=== PATIENT | male | born 1990 | race American Indian/Alaskan Native ===

== ENCOUNTER 2017-03-20 13:36 | Emergency (ER) | payer MEDICAID ==
[2017-03-20 13:57] VITALS: BP 147/88
[2017-03-20] MEDS ORDERED: Sodium Chloride 0.9% 10 ML Syringe FLUSH PRN (14:02)
[2017-03-20] MEDS ORDERED: Ondansetron 4 MG/2 ML SDV IVPUSH ONE (14:02)
[2017-03-20] MEDS ORDERED: Sodium Chloride 0.9% 1,000 ML IV STA (14:02)
[2017-03-20] MEDS ORDERED: HYDROmorphone 1 MG/ML Syringe IVPUSH ONE ×2 (14:04→17:21)
--- NOTE | 2017-03-20 16:02 | EDM.PDOC ---
ED HPI GENERAL MEDICAL PROBLEM - General Chief Complaint: Abdominal Pain Stated Complaint: ABDOMINAL PAIN/ HEADACHE/ NAUSEA Time Seen by Provider: 03/20/17 13:58 Source of Information: Reports: Patient History Limitations: Reports: No Limitations - History of Present Illness INITIAL COMMENTS - FREE TEXT/NARRATIVE: The patient presents with RUQ abdominal pain, nausea, and vomiting. This has been going on for 9 days. He has no fever, chills, cough, congestion or runny nose. He did not think he ate any bad food and he has no sick contact. He has no diarrhea. He is also jaundice. He noticed this a couple days ago. He has no chest pain or shortness of breath. He still has a gallbladder and appendix. He does not drink. He quit about 1 year ago. He did not drink heavy then but he says he could not hold his liquor so he quit. He has no family history of problems with his liver. Onset: Gradual Duration: Day(s): (9) Location: Reports: Abdomen Quality: Reports: Sharp Severity: Moderate Improves with: Reports: None Worsens with: Reports: None Associated Symptoms: Reports: Nausea/Vomiting. Denies: Chest Pain, Cough, Fever /Chills, Headaches, Shortness of Breath Upper Abdomen Pain Score (Numeric/FACES): 6 - Related Data Allergies Allergy/AdvReac Type Severity Reaction Status Date / Time Sulfa (Sulfonamide Allergy Cannot Verified 03/27/16 16:51 Antibiotics) Remember Home Meds: Home Meds Omeprazole 20 mg PO BID 03/20/17 [History] Ondansetron [Zofran ODT] 8 mg PO Q8H PRN 03/20/17 [History] Past Medical History - Past Health History Medical/Surgical History: Denies Medical/Surgical History Other Respiratory History: MRSA Other Neuro History: Craniotomy Psychiatric History: Reports: Addiction, Anxiety, Depression Social & Family History - Family History Family Medical History: Noncontributory - Tobacco Use Smoking Status *Q: Never Smoker Years of Tobacco use: 6 Packs/Tins Daily: 0.1 Second Hand Smoke Exposure: No - Caffeine Use Caffeine Use: Reports: None - Recreational Drug Use Recreational Drug Use: No ED ROS GENERAL - Review of Systems Review Of Systems: See Below Constitutional: Reports: No Symptoms HEENT: Reports: No Symptoms Respiratory: Reports: No Symptoms Cardiovascular: Reports: No Symptoms Endocrine: Reports: No Symptoms GI/Abdominal: Reports: Abdominal Pain, Nausea, Vomiting. Denies: Diarrhea : Reports: No Symptoms Musculoskeletal: Reports: No Symptoms ED EXAM, GI/ABD - Physical Exam Exam: See Below Exam Limited By: No Limitations General Appearance: Alert, No Apparent Distress Ears: Normal External Exam Nose: Normal Inspection Head: Atraumatic, Normocephalic Neck: Normal Inspection Respiratory/Chest: No Respiratory Distress, Lungs Clear, Normal Breath Sounds Cardiovascular: Regular Rate, Rhythm, No Edema, No Murmur GI/Abdominal Exam: Soft, No Organomegaly, No Mass, Tender (Moderate tenderness to the RUQ) Back Exam: Normal Inspection Extremities: Normal Inspection Comments: Bilateral scleral icterus Course - Vital Signs Last Recorded V/S: Last Vital Signs Temp 97.6 F 03/20/17 13:52 Pulse 75 03/20/17 13:52 Resp 18 03/20/17 13:52 BP 147/88 H 03/20/17 13:52 Pulse Ox 96 03/20/17 13:52 - Orders/Labs/Meds Orders: Active Orders 24 hr Category Date Time Status Peripheral IV Care [RC] . DIRECTED Care 03/20/17 14:03 Active Abdomen Ltd [US] Stat Exams 03/20/17 14:02 Taken Abdomen Pelvis w Cont [CT] Stat Exams 03/20/17 16:30 Taken HEPATITIS PANEL, ACUTE [REF] Stat Lab 03/20/17 14:15 Received ED Antiemetic Medication Reflex [OM.PC] Stat Oth 03/20/17 14:03 Ordered Peripheral IV Insertion Adult [OM.PC] Stat Oth 03/20/17 14:02 Ordered Labs: Laboratory Tests 03/20/17 03/20/17 03/20/17 Range/Units 14:15 14:15 14:15 WBC 7.97 (4.23-9.07) K/mm3 RBC 5.59 (4.63-6.08) M/mm3 Hgb 16.8 (13.7-17.5) gm/L Hct 49.9 (40.1-51.0) % MCV 89.3 (79.0-92.2) fl MCH 30.1 (25.7-32.2) pg MCHC 33.7 (32.2-35.5) g/dl RDW Std Deviation 47.8 H (35.1-43.9) fL Plt Count 265 (163-337) K/mm3 MPV 11.6 (9.4-12.3) fl Neut % (Auto) 53.9 (34.0-67.9) % Lymph % (Auto) 29.4 (21.8-53.1) % [place] % (Auto) 15.6 H (5.3-12.2) % Eos % (Auto) 0.4 L (0.8-7.0) Baso % (Auto) 0.4 (0.1-1.2) % Neut # (Auto) 4.31 (1.78-5.38) K/mm3 Lymph # (Auto) 2.34 (1.32-3.57) K/mm3 [place] # (Auto) 1.24 H (0.30-0.82) K/mm3 Eos # (Auto) 0.03 L (0.04-0.54) K/mm3 Baso # (Auto) 0.03 (0.01-0.08) K/mm3 Manual Slide Review Normal smear Sodium 139 (136-145) mEq/L Potassium 3.7 (3.5-5.1) mEq/L Chloride 102 (98-107) mEq/L Carbon Dioxide 25 (21-32) mEq/L Anion Gap 15.7 H (5-15) BUN 8 (7-18) mg/dL Creatinine 0.8 (0.7-1.3) mg/dL Est Cr Clr Drug Dosing 161.26 mL/min Estimated GFR (MDRD) > 60 (>60) mL/min BUN/Creatinine Ratio 10.0 L (14-18) Glucose 96 (74-106) mg/dL Calcium 9.4 (8.5-10.1) mg/dL Total Bilirubin 8.9 H (0.2-1.0) mg/dL GGT (15-85) U/L AST 2212 H (15-37) U/L ALT 3644 H (16-63) U/L Alkaline Phosphatase 189 H (46-116) U/L Total Protein 8.0 (6.4-8.2) g/dl Albumin 3.9 (3.4-5.0) g/dl Globulin 4.1 gm/dL Albumin/Globulin Ratio 1.0 (1-2) Lipase 360 (73-393) U/L Urine Color (Yellow) Urine Appearance (Clear) Urine pH (5.0-8.0) Ur Specific [place] (1.005-1.030) Urine Protein (Negative) Urine Glucose (UA) (Negative) Urine Ketones (Negative) Urine Occult Blood (Negative) Urine Nitrite (Negative) Urine Bilirubin (Negative) Urine Urobilinogen (0.2-1.0) Ur Leukocyte Esterase (Negative) Urine RBC (0-5) /hpf Urine WBC (0-5) /hpf Ur Epithelial Cells (0-5) /hpf Urine Bacteria (FEW) /hpf Urine Mucus (FEW) /hpf Ethyl Alcohol (0.00) gm% Monoscreen Negative (NEGATIVE) 03/20/17 03/20/17 03/20/17 Range/Units 14:15 14:20 16:31 WBC (4.23-9.07) K/mm3 RBC (4.63-6.08) M/mm3 Hgb (13.7-17.5) gm/L Hct (40.1-51.0) % MCV (79.0-92.2) fl MCH (25.7-32.2) pg MCHC (32.2-35.5) g/dl RDW Std Deviation (35.1-43.9) fL Plt Count (163-337) K/mm3 MPV (9.4-12.3) fl Neut % (Auto) (34.0-67.9) % Lymph % (Auto) (21.8-53.1) % [place] % (Auto) (5.3-12.2) % Eos % (Auto) (0.8-7.0) Baso % (Auto) (0.1-1.2) % Neut # (Auto) (1.78-5.38) K/mm3 Lymph # (Auto) (1.32-3.57) K/mm3 [place] # (Auto) (0.30-0.82) K/mm3 Eos # (Auto) (0.04-0.54) K/mm3 Baso # (Auto) (0.01-0.08) K/mm3 Manual Slide Review Sodium (136-145) mEq/L Potassium (3.5-5.1) mEq/L Chloride (98-107) mEq/L Carbon Dioxide (21-32) mEq/L Anion Gap (5-15) BUN (7-18) mg/dL Creatinine (0.7-1.3) mg/dL Est Cr Clr Drug Dosing mL/min Estimated GFR (MDRD) (>60) mL/min BUN/Creatinine Ratio (14-18) Glucose (74-106) mg/dL Calcium (8.5-10.1) mg/dL Total Bilirubin (0.2-1.0) mg/dL GGT 348 H (15-85) U/L AST (15-37) U/L ALT (16-63) U/L Alkaline Phosphatase (46-116) U/L Total Protein (6.4-8.2) g/dl Albumin (3.4-5.0) g/dl Globulin gm/dL Albumin/Globulin Ratio (1-2) Lipase (73-393) U/L Urine Color Dark yellow (Yellow) Urine Appearance Slt cloudy H (Clear) Urine pH 5.5 (5.0-8.0) Ur Specific [place] > or = 1.030 (1.005-1.030) Urine Protein 1+ H (Negative) Urine Glucose (UA) Negative (Negative) Urine Ketones 3+ H (Negative) Urine Occult Blood Negative (Negative) Urine Nitrite Negative (Negative) Urine Bilirubin 3+ H (Negative) Urine Urobilinogen 1.0 (0.2-1.0) Ur Leukocyte Esterase Negative (Negative) Urine RBC 0-5 (0-5) /hpf Urine WBC 0-5 (0-5) /hpf Ur Epithelial Cells Not seen (0-5) /hpf Urine Bacteria Many H (FEW) /hpf Urine Mucus Few (FEW) /hpf Ethyl Alcohol 0.00 (0.00) gm% Monoscreen (NEGATIVE) Meds: Medications Discontinued Medications Generic Name Dose Route Start Last Admin Trade Name Freq PRN Reason Stop Dose Admin Hydromorphone HCl 1 mg 03/20/17 14:04 03/20/17 14:24 Dilaudid IVPUSH 03/20/17 14:05 1 mg ONETIME ONE Administration Hydromorphone HCl 1 mg 03/20/17 17:21 03/20/17 17:43 Dilaudid IVPUSH 03/20/17 17:22 1 mg ONETIME ONE Administration Sodium Chloride 1,000 mls @ 1,000 mls/hr 03/20/17 14:02 03/20/17 14:24 Normal Saline IV 03/20/17 15:01 1,000 mls/hr .BOLUS STA Administration Sodium Chloride 1,000 mls @ 150 mls/hr 03/20/17 16:45 03/20/17 16:44 Normal Saline IV 150 mls/hr ASDIRECTED ARLETH Administration Iopamidol 125 ml 03/20/17 16:58 03/20/17 17:11 Isovue-300 (61%) IVPUSH 03/20/17 16:59 125 ml ONETIME ONE Administration Ondansetron HCl 4 mg 03/20/17 14:02 03/20/17 14:23 Zofran IVPUSH 03/20/17 14:03 4 mg ONETIME ONE Administration Sodium Chloride 10 ml 03/20/17 14:02 03/20/17 14:23 Saline Flush FLUSH 10 ml ASDIRECTED PRN Administration Keep Vein Open Sodium Chloride 10 ml 03/20/17 16:58 03/20/17 17:11 Saline Flush FLUSH 03/20/17 16:59 10 ml ONETIME ONE Administration - Re-Assessments/Exams Free Text/Narrative Re-Assessment/Exam: 03/20/17 16:02 I ordered an IV NS 1L bolus, zofran 4mg IV, dilaudid 1mg IV, labs, UA and an US of his gallbladder. 03/20/17 18:28 His CBC was negative. His anion gap was elevated at 15.7. His total bili is elevated at 8.9. His GGT is elevated at 348. His AST was elevated at 2212. His ALT was elevated at 3644. His alk phos was elevated at 189. His lipase was negative. His UA shows no UTI. His monoscreen was negative. His US shows probable fatty liver, probable thickening of gallbladder wall which is nonspecific. It could reflect hyperplastic cholecystosis, cholecystitis, liver failure/hepatitis, heart failure or other. I called Dr Lozano our surgeon adapted physical education teacher and Dr Bustos the hospitalist adapted physical education teacher and they recommended a CT of his abdomen and pelvis. The CT showed gallbladder abnormalities suspicious for chronic cholecystitis. Measurements taken of the gallbladder wall by ultrasound probably included pericholecystic fat giving the false impression of gallbladder wall thickening. Indeterminate portacaval adneopathy is probably present, which could be reactive. There is moderate fatty liver replacement. I talked with our hospitalist and he did not feel comfortable keeping him. I then called [facility] in [place] and talked with Dr Yañez and she accepted the patient. I did give him more dilaudid for pain. Departure - Departure Time of Disposition: 18:40 Disposition: DC/[facility]fer to [facility] 02 Condition: Fair Clinical Impression: Elevated transaminase level, Jaundice Abdominal pain Qualifiers: Abdominal location: right upper quadrant Qualified Code(s): R10.11 - Right upper quadrant pain Nausea and vomiting Qualifiers: Vomiting type: unspecified Vomiting Intractability: non-intractable Qualified Code(s): R11.2 - Nausea with vomiting, unspecified - Discharge Information Referrals: PCP,Not In Area [Primary Care Provider] - Forms: ED Department Discharge - My Orders Last 24 Hours: My Active Orders 03/20/17 14:02 Abdomen Ltd [US] Stat Peripheral IV Insertion Adult [OM.PC] Stat 03/20/17 14:03 Peripheral IV Care [RC] . DIRECTED ED Antiemetic Medication Reflex [OM.PC] Stat 03/20/17 14:15 HEPATITIS PANEL, ACUTE [REF] Stat 03/20/17 16:30 Abdomen Pelvis w Cont [CT] Stat - Assessment/Plan Last 24 Hours: My Active Orders 03/20/17 14:02 Abdomen Ltd [US] Stat Peripheral IV Insertion Adult [OM.PC] Stat 03/20/17 14:03 Peripheral IV Care [RC] . DIRECTED ED Antiemetic Medication Reflex [OM.PC] Stat 03/20/17 14:15 HEPATITIS PANEL, ACUTE [REF] Stat 03/20/17 16:30 Abdomen Pelvis w Cont [CT] Stat
[2017-03-20] MEDS ORDERED: Sodium Chloride 0.9% 1,000 ML IV SCH (16:45)
[2017-03-20] MEDS ORDERED: Iopamidol 612 MG/ML 150 ML Bottle IVPUSH ONE (16:58)
[2017-03-20] MEDS ORDERED: Sodium Chloride 0.9% 10 ML Syringe FLUSH ONE (16:58)
--- NOTE | 2017-03-21 10:06 | CT ---
CT abdomen and pelvis Technique: Multiple axial sections were obtained from above the dome of the diaphragm inferiorly through the pubic symphysis. Intravenous contrast was utilized. Delayed images were obtained through the bladder. Comparison: Previous abdominal ultrasound of the right upper abdomen dated earlier on the same day. Findings: Visualized lung bases are clear. Liver shows diffuse fatty infiltration. Small lymph node is noted anterior to the upper inferior vena cava believed to be incidental. No other retroperitoneal adenopathy is seen. Adrenal glands show no nodule. Kidneys show symmetric contrast enhancement without hydronephrosis or mass. Gallbladder is contracted. Slight inflammatory-type change is noted around the gallbladder. No gallbladder wall thickening is seen. Pancreas is within normal limits. Aorta shows no aneurysmal dilatation. No mesenteric abnormalities are seen. Appendix is seen which is normal. No pelvic mass or adenopathy is identified. Delayed images show contrast within the distal ureters and within the bladder. No bowel dilatation is identified. Bone window settings were reviewed which appear within normal limits for the patient's age. Impression: 1. Contracted gallbladder with slight surrounding inflammatory change. No gallbladder wall thickening is seen as noted on ultrasound which likely was artifact on previous ultrasound. Difficult to exclude acalculous chronic cholecystitis. 2. Fatty infiltration within the liver. 3. No additional abnormality is appreciated on CT study of the abdomen and pelvis. Diagnostic code #3 I agree with preliminary report issued by [facility] [facility] ([facility] report finalized on 03/20/17, 8:34 PM Central Time)
--- NOTE | 2017-03-21 10:06 | US ---
Limited abdominal ultrasound: Multiple real-time images of the upper right abdomen were obtained. Liver is echogenic. No discrete focal abnormality is appreciated within the liver. Poorly distended gallbladder is seen with gallbladder wall thickening. No definite shadowing gallstones are appreciated. Common bile duct is poorly seen. No indirect evidence of biliary duct dilatation is appreciated. Right kidney shows no hydronephrosis or mass. Right kidney has a length of 10.9 cm. Portal vein shows normal hepatopedal flow. Visualized portions of the pancreas are within normal limits. Impression: 1. Contracted gallbladder with gallbladder wall thickening. 2. Echogenic liver most likely representing fatty infiltration. 3. No additional abnormality is definitely seen. Diagnostic code #3 I agree with preliminary report issued by [facility] ([facility] report finalized on 03/20/17, 4:38 PM Central Time)
== END 2017-03-20 19:15 ==
LOC: JD.ED 13:36
DX: R17 Unspecified jaundice (principal); R74.0 Nonspecific elevation of levels of transaminase and lactic acid dehydrogenase [LDH]; Z88.2 Allergy status to sulfonamides
CPT/HCPCS: 36415; 74177; 74177-26; 76705; 76705-26; 80053; 81001; 82977; 83690; 85025; 86308; 96361; 96374; 96375; 96376; 99285-25; G0480; J1170; J2405; J7040; J7050; Q9967

== ENCOUNTER 2018-06-04 23:09 | Emergency (ER) | payer MEDICAID ==
[2018-06-04 23:17] VITALS: BP 145/94
--- NOTE | 2018-06-05 00:53 | EDM.PDOC ---
ED HPI GENERAL MEDICAL PROBLEM - General Chief Complaint: Chest Pain Stated Complaint: chest pain Time Seen by Provider: 06/04/18 23:34 Source of Information: Reports: Patient, RN Notes Reviewed, Significant Other ( Girlfriend) History Limitations: Reports: No Limitations - History of Present Illness INITIAL COMMENTS - FREE TEXT/NARRATIVE: The patient states that the veins intermittently pop out in his left forearm, and that he feels pressure in his forearm, ever since he injured his left wrist several months ago. He also reports intermittent palpitations ever since childhood. Sometimes the palpitations cause a pinprick sensation to his chest. He states that they occur both at rest and with exertion, and that he has not identified any modifiers. He states that the frequency of these palpitations has been increasing over the past month or so. He reports prior evaluation of his symptoms, including a 48-hour Holter monitor, and an echocardiogram. He states that he was told that the results were normal, but his girlfriend then stated "Yeah, that's what they told us", implying that they had not been told the truth. The patient states that he has a family history of heart disease, and that he is concerned that there is something very wrong with his heart. He also reports increased stress in his life. He reports that his PCP is in [place], but that, for reasons unclear, he was seen by the Stoker Installer Dr. Anne in [place], who felt that his symptoms were due to anxiety, and started him on Cymbalta on . Review of prior medical records finds that the patient underwent a 48-hour Holter monitor on 01/03/2015, which found a total of 26 singly occurring PVCs, and one brief episode of nonsustained ventricular tachycardia containing a 3- beat run at a rate of 170 bpm (strictly speaking, this is not ventricular tachycardia, as ventricular tachycardia requires 6 beats or more). Additionally , the patient also reported various symptoms such as "pounding in the heart, palpitations, heart, quick sharp pain" etc., all of which were associated with a sinus rhythm. Additionally, the patient underwent an echocardiogram on 02/03/2015, which returned essentially normal. Here in the ED tonight, it is noted that the patient's oxygen saturation is 99- 100% on room air, suggesting hyperventilation. The patient's PCP is Jennie Rivas, in [place]. The patient is an appointment to see her this coming 06/09/2018. Chest Pain Score (Numeric/FACES): 0 - Related Data Allergies Allergy/AdvReac Type Severity Reaction Status Date / Time Sulfa (Sulfonamide Allergy Cannot Verified 03/27/16 16:51 Antibiotics) Remember Home Meds: Home Meds Omeprazole 20 mg PO BID 03/20/17 [History] Ondansetron [Zofran ODT] 8 mg PO Q8H PRN 03/20/17 [History] Past Medical History Musculoskeletal History: Reports: Fracture (left hand) Neurological History: Reports: Head Trauma (intracranial hemorrhage), Other ( See Below) (Left Aquino palsy 2018) Psychiatric History: Reports: Addiction (opioids), Anxiety, Depression - Past Surgical History Head Surgeries/Procedures: Reports: Craniotomy (2013) HEENT Surgical History: Reports: Oral Surgery (wisdom teeth extraction) Musculoskeletal Surgical History: Reports: ORIF (left hand, 2009) Social & Family History - Family History Family Medical History: Noncontributory - Tobacco Use Smoking Status *Q: Never Smoker - Caffeine Use Caffeine Use: Reports: None - Alcohol Use Alcohol Use History: Yes Date/Time of Last Drink Comment: None since 2018 - Recreational Drug Use Recreational Drug Use: Yes Drug Use in Last 12 Months: Yes Recreational Drug Type: Reports: Marijuana/Hashish (last smoked early May 2018 ), Methamphetamine (last smoked 2016), Other (see below) (Opioids - last took 2017) - Living Situation & Occupation Living situation: Reports: Single, with Significant Other (Girlfriend), with Family (6 children) Occupation: Unemployed ED ROS GENERAL - Review of Systems Review Of Systems: ROS reveals no pertinent complaints other than HPI. ED EXAM, GENERAL - Physical Exam Exam: See Below Exam Limited By: No Limitations General Appearance: Alert, WD/WN, No Apparent Distress Eye Exam: Bilateral Eye: EOMI, Normal Inspection Ears: Normal External Exam, Hearing Grossly Normal Nose: Normal Inspection Throat/Mouth: Normal Inspection, Normal Lips, Normal Voice, No Airway Compromise Head: Normocephalic, Other (Right fronto-parietal craniotomy scar) Neck: Normal Inspection, Full Range of Motion Respiratory/Chest: No Respiratory Distress, Lungs Clear, Normal Breath Sounds, No Accessory Muscle Use Cardiovascular: Normal Peripheral Pulses, Regular Rate, Rhythm, No Edema, No Gallop, No JVD, No Murmur, No Rub Peripheral Pulses: 4+: Radial (L), Radial (R) GI/Abdominal: Normal Bowel Sounds, Soft, Non-Tender, No Organomegaly, No Distention, No Abnormal Bruit, No Mass (Male) Exam: Deferred Rectal (Males) Exam: Deferred Back Exam: Normal Inspection, Full Range of Motion, NT Extremities: Normal Inspection, Normal Range of Motion, No Pedal Edema, Normal Capillary Refill Neurological: Alert, Oriented, Normal Cognition, No Motor/Sensory Deficits Psychiatric: Normal Affect Skin Exam: Warm, Dry, Intact, Normal Color, No Rash EKG INTERPRETATION EKG Date: 06/05/18 Time: 00:20 Rhythm: NSR Rate (Beats/Min): 71 [place]: Normal P-Wave: Present (possible LAE) QRS: Normal (Diffuse J-point elevation, consistent with a healthy heart in a young person. No ischemic changes. Normal transition) ST-T: Normal QT: Normal Comparison: NA - No Prior EKG Course - Vital Signs Last Recorded V/S: Last Vital Signs Temp 36.2 C 06/04/18 23:13 Pulse 81 06/04/18 23:13 Resp 13 06/04/18 23:13 BP 145/94 H 06/04/18 23:13 Pulse Ox 99 06/04/18 23:13 - Orders/Labs/Meds Orders: Active Orders 24 hr Category Date Time Status EKG Documentation Completion [RC] STAT Care 06/04/18 23:54 Active - Re-Assessments/Exams Free Text/Narrative Re-Assessment/Exam: 06/05/18 00:38 ECG results discussed with the patient. Elva's ECG is perfectly normal, with no dysrhythmias or suggestion of ischemia. I explained that the symptoms that the patient is feeling are not suggestive of myocardial ischemia, even if he has a family history of coronary artery disease. The patient asked about whether he could have a blood clot in his arm. I explained that his symptoms were not consistent with that. In addition, I was able to print off a copy of the patient's Holter monitor report from 01/03/2015. I explained to the patient that when a person feels palpitations, sometimes it is due to an actual abnormal heart rhythm, but sometimes a person feels an abnormality in the heartbeat when no actual abnormality exists. When that occurs, as the patient's Holter monitor from 2014 indicates happened to him, it is often due to anxiety. The patient reported that he was started on Cymbalta on 05/26/2018. I explained that Cymbalta typically takes 3 to 4 weeks before it becomes effective. I explained to the patient that his palpitations are most likely related to anxiety, and I recommended that he be patient with the Cymbalta. If his symptoms persist after several more weeks, after the Cymbalta should have taken effect, at that time a referral to a [facility] may be appropriate, but at this time, I do not feel it is. The patient responded by saying that he didn't believe that the Cymbalta was causing his palpitations. I explained that no, I was not suggesting that the Cymbalta was the cause of his palpitations, rather, that his palpitations were due to anxiety, and that he has not been taking Cymbalta long enough to help with those symptoms. The patient insisted that there was something more serious going on. He said that he was going to seek a "second opinion" tomorrow, because we "wern't doing nothin'. The patient then got up and left the ED without waiting for discharge instructions. Departure - Departure Time of Disposition: 00:37 Disposition: [facility] 07 Condition: Good Clinical Impression: Palpitations, Anxiety - Discharge Information *PRESCRIPTION DRUG MONITORING PROGRAM REVIEWED*: Not Applicable *COPY OF PRESCRIPTION DRUG MONITORING REPORT IN PATIENT DAVID: Not Applicable Referrals: Jennie Rivas NP [Ordering Only Provider] - - My Orders Last 24 Hours: My Active Orders 06/04/18 23:54 EKG Documentation Completion [RC] STAT - Assessment/Plan Last 24 Hours: My Active Orders 06/04/18 23:54 EKG Documentation Completion [RC] STAT
== END 2018-06-05 00:50 | disposition left against medical advice (07) ==
LOC: JD.ED 23:09
DX: F41.9 Anxiety disorder, unspecified (principal); Z88.2 Allergy status to sulfonamides
CPT/HCPCS: 93005; 93010; 99284; 99284-25

== ENCOUNTER 2019-02-21 16:16 | Emergency (ER) | payer MEDICAID ==
[2019-02-21 16:46] VITALS: BP 151/76; PULSE 95
[2019-02-21] MEDS ORDERED: Codeine/Promethazine 10-6.25 MG/5 ML Syrup 5 ML UD Cup PO ONE (17:18)
--- NOTE | 2019-02-21 17:27 | EDM.PDOC ---
ED HPI GENERAL MEDICAL PROBLEM - General Chief Complaint: Respiratory Problem Stated Complaint: FLU SX Time Seen by Provider: 02/21/19 16:46 Source of Information: Reports: Patient, RN Notes Reviewed History Limitations: Reports: No Limitations - History of Present Illness INITIAL COMMENTS - FREE TEXT/NARRATIVE: Patient is a 28-year-old male who presents to the ED for the evaluation of flulike symptoms. Patient notes that on Friday, he developed some sneezing and a runny nose. He states that Friday night and early into Friday morning, he developed allover body aches and chills, with an associated cough. He notes that he did have fevers at home, these were as high as 104.5 F. He notes that he has been taking DayQuil, Mucinex, TheraFlu for symptomatic relief. He did not have a flu shot this year. He is not having any nausea or vomiting. Generalized Pain Score (Numeric/FACES): 6 - Related Data Allergies Allergy/AdvReac Type Severity Reaction Status Date / Time Sulfa (Sulfonamide Allergy Cannot Verified 02/21/19 16:44 Antibiotics) Remember Home Meds: Home Meds Promethazine HCl/Codeine [Prometh-Codein 6.25-10 mg/5 ml] 5 ml PO Q4H PRN #60 ml 02/21/19 [Rx] Past Medical History Musculoskeletal History: Reports: Fracture Neurological History: Reports: Head Trauma, Other (See Below) Other Neuro History: Craniotomy Psychiatric History: Reports: Addiction, Anxiety, Depression - Infectious Disease History Infectious Disease History: Reports: MRSA - Past Surgical History Head Surgeries/Procedures: Reports: Craniotomy HEENT Surgical History: Reports: Oral Surgery Musculoskeletal Surgical History: Reports: ORIF Social & Family History - Family History Family Medical History: Noncontributory - Tobacco Use Smoking Status *Q: Current Some Day Smoker Years of Tobacco use: 4 Packs/Tins Daily: 0.1 - Caffeine Use Caffeine Use: Reports: Coffee - Recreational Drug Use Recreational Drug Use: No - Living Situation & Occupation Living situation: Reports: Single, with Significant Other (Girlfriend), with Family (6 children) Occupation: Unemployed ED ROS GENERAL - Review of Systems Review Of Systems: See Below Constitutional: Reports: Fever, Chills, Malaise (generalized) HEENT: Reports: Rhinitis Respiratory: Reports: Cough. Denies: Shortness of Breath Cardiovascular: Denies: Chest Pain GI/Abdominal: Denies: Abdominal Pain, Constipation, Diarrhea, Nausea, Vomiting ED EXAM, GENERAL - Physical Exam Exam: See Below Exam Limited By: No Limitations General Appearance: Alert, WD/WN, No Apparent Distress Eye Exam: Bilateral Eye: EOMI, Normal Inspection, PERRL Throat/Mouth: Normal Inspection, Normal Lips, Normal Teeth, Normal Gums, Normal Oropharynx, Normal Voice, No Airway Compromise Head: Atraumatic, Normocephalic Neck: Normal Inspection Respiratory/Chest: No Respiratory Distress, Lungs Clear, Normal Breath Sounds, No Accessory Muscle Use, Chest Non-Tender Cardiovascular: Normal Peripheral Pulses, Regular Rate, Rhythm, No Edema, No Murmur Peripheral Pulses: 3+: Radial (L), Radial (R) GI/Abdominal: Normal Bowel Sounds, Soft, Non-Tender, No Distention, No Mass Extremities: Normal Inspection, Normal Capillary Refill Neurological: Alert, Oriented, Normal Cognition, No Motor/Sensory Deficits Psychiatric: Normal Affect, Normal Mood Skin Exam: Warm, Dry, Intact, Normal Color, No Rash Course - Vital Signs Last Recorded V/S: Last Vital Signs Temp 98.1 F 02/21/19 16:42 Pulse 95 02/21/19 16:42 Resp 16 02/21/19 16:42 BP 151/76 H 02/21/19 16:42 Pulse Ox 96 02/21/19 16:42 - Orders/Labs/Meds Meds: Medications Discontinued Medications Generic Name Dose Route Start Last Admin Trade Name Freq PRN Reason Stop Dose Admin Promethazine HCl/Codeine 5 ml 02/21/19 17:18 Phenergan With Codeine PO 02/21/19 17:19 ONETIME ONE - Re-Assessments/Exams Free Text/Narrative Re-Assessment/Exam: 02/21/19 17:31 Patient presents to the ED for evaluation of flulike symptoms. Obtained at time of triage, this was negative at today's visit, however his son's flu swab was positive for influenza B, and each has like symptoms. Safe to say that the patient does have influenza, we does not catch it on the swab. Unfortunately since his symptoms have been present since this last Friday, there is not a lot that we can provide him. I will give him some cough medication, as he states this is the most bothersome part of the symptoms and has not been able to get much sleep. Departure - Departure Time of Disposition: 17:32 Disposition: Home, Self-Care 01 Condition: Fair Clinical Impression: Influenza - Discharge Information *PRESCRIPTION DRUG MONITORING PROGRAM REVIEWED*: No *COPY OF PRESCRIPTION DRUG MONITORING REPORT IN PATIENT DAVID: No Instructions: Influenza, Adult, [id number] Referrals: PCP,None [Primary Care Provider] - Forms: ED Department Discharge, ED Return to Work/School Form Additional Instructions: You were evaluated in the ED today for flulike symptoms. Your influenza swab was negative for influenza Awas up and B, however this is not a perfect test and your clinical symptoms are consistent with influenza in nature. At this time you are diagnosed with influenza. Please try to limit exposure to the general public, you have likely had this illness for around 1 week, you were given a work note to excuse you from work this last week, and you should be able to return to work on February 25 with no restrictions. You were given a dose of cough medication to take tonight, and was also prescribed more that was sent to the [facility] in [place]. You will have to go there on Friday morning and obtain this and use as directed. Please continue to take [id number] cough/cold/flu remedies to help relieve symptoms of the flu. Please return to the ER at any time if your symptoms change or worsen. Sepsis Event Note - Evaluation Sepsis Screening Result: No Definite Risk - Focused Exam Vital Signs: Vital Signs Temp Pulse Resp BP Pulse Ox 02/21/19 16:42 98.1 F 95 16 151/76 H 96 Date Exam was Performed: 02/21/19 Time Exam was Performed: 17:22
== END 2019-02-21 18:05 | disposition home or self-care (01) ==
LOC: JD.ED 16:16
DX: J11.1 Influenza due to unidentified influenza virus with other respiratory manifestations (principal); F17.210 Nicotine dependence, cigarettes, uncomplicated; Z88.2 Allergy status to sulfonamides
CPT/HCPCS: 87804; 99283; A9270; 99282